=== PATIENT | female | born 1995 | race African-American/Black ===

== ENCOUNTER 2018-05-04 14:03 | Emergency (ER) | payer OTHER ==
[~2018-05-04] VITALS: Ht 154.9 cm; Wt 58.5 kg
[~2018-05-04 14:03] MED LIST: AMOXICILLIN500 MG PO; BACTRIM DS 8001 TAB PO; LO LOESTRIN FE1 TAB PO; PRENATAL ONE D1 EACH PO
[2018-05-04 14:12] VITALS: BP 103/72
--- NOTE | 2018-05-04 14:53 | ED GI/GU/ABDOMINAL COMPLAINT ---
History of Present Illness General Chief Complaint: Female Urogenital Problems Stated Complaint: ABD/FEMALE PAIN S/P MISCARRIAGE Source: patient Exam Limitations: no limitations Vital Signs & Intake/Output Vital Signs & Intake/Output Vital Signs Date Time Temp Pulse Resp B/P B/P Pulse O2 O2 Flow FiO2 Mean Ox Delivery Rate 05/04 1412 98.3 99 20 103/72 98 Room Air ED Intake and Output 05/05 0000 05/04 1200 Intake Total Output Total Balance Patient 129 lb Weight Weight Reported by Patient Measurement Method Allergies Coded Allergies: NO KNOWN ALLERGIES (07/24/14) Reconcile Medications NORETHINDRONE-E.ESTRADIOL-IRON (Lo Loestrin Fe 1-10 Tablet) 1MG-10(24) TABLET 1 TAB PO DAILY MENSTRUAL REGULARITY (Reported) Vit No.129/Iron/FA ( One Daily Tablet) 27 MG IRON-800 MCG TABLET 1 TAB PO DAILY Triage Note: PT TO ED C/O LOWER ABD PAIN CRAMPING AND VAGINAL SPOTTING. PT IS S/P MISCARRIAGE LAST WEEK AT 7 WEEKS. C/O CONTINUED ABD CRAMPING. Triage Nurses Notes Reviewed? yes ? Y Is pt currently ? No Onset: Abrupt Timing: no prior history HPI: 23-year-old female comes into the emergency room with vaginal bleeding and cramping. Patient reports that she had a miscarriage about a week ago. 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 She reports that she's been having some persistent cramping and some intermittent bleeding and she came in for further evaluation. Patient was seen in triage as a screening process. She eloped from the waiting room for being officially evaluated in the room. (Aaron Kramer) Past History Travel History Traveled to [place] past 21 day No Medical History Any Pertinent Medical History? see below for history Neurological: NONE EENT: NONE Cardiovascular: NONE Respiratory: asthma Gastrointestinal: NONE Hepatic: NONE Renal: NONE Musculoskeletal: NONE Psychiatric: NONE Endocrine: NONE Blood Disorders: NONE Surgical History Surgical History: non-contributory Psychosocial History What is your primary language French Tobacco Use: Never used ETOH Use: denies use Illicit Drug Use: denies illicit drug use Family History Hx Contributory? No (Aaron Kramer) Review of Systems Review of Systems Constitutional: Reports: no symptoms. EENTM: Reports: no symptoms. Respiratory: Reports: no symptoms. Cardiovascular: Reports: no symptoms. GI: Reports: no symptoms. Genitourinary: Reports: see HPI. Musculoskeletal: Reports: no symptoms. Skin: Reports: no symptoms. Neurological/Psychological: Reports: no symptoms. Hematologic/Endocrine: Reports: see HPI. Immunologic/Allergic: Reports: no symptoms. All Other Systems: Reviewed and Negative (Aaron Kramer) Physical Exam Physical Exam General Appearance: well developed/nourished, alert, awake Head: atraumatic Eyes: Bilateral: normal appearance. Ears, Nose, Throat, Mouth: hearing grossly normal, moist mucous membrane Neck: normal inspection Respiratory: no respiratory distress Gastrointestinal: not examined Back: normal inspection Extremities: normal range of motion Neurologic/Psych: awake, alert Skin: intact Core Measures ACS in differential dx? No Sepsis Present: No Sepsis Focused Exam Completed? No (Aaron Kramer) Progress Differential Diagnosis: spontaneous miscarriage, threatened miscarriage, Plan of Care: Orders Procedure Date/time Status URINALYSIS 05/04 141 Complete Laboratory Tests 05/04/18 1426: Urine Color YEL, Urine Clarity HAZY H, Urine pH 6.5, Ur Specific Marshall 1.025, Urine Protein NEG, Urine Ketones NEG, Urine Nitrite NEG, Urine Bilirubin NEG, Urine Urobilinogen 0.2, Ur Leukocyte Esterase NEG, Ur Microscopic SEDIMENT EXAMINED, Urine RBC 3-5, Urine WBC RARE, Ur Epithelial Cells MOD H, Urine Bacteria MOD H, Urine Hemoglobin LARGE H, Urine Glucose NEG 05/04/18 1414: Sodium Cancelled, Potassium Cancelled, Chloride Cancelled, Carbon Dioxide Cancelled, Anion Gap Cancelled, BUN Cancelled, Creatinine Cancelled, BUN/ Creatinine Ratio Cancelled, Glucose Cancelled, Calcium Cancelled, Total Bilirubin Cancelled, AST Cancelled, ALT Cancelled, Alkaline Phosphatase Cancelled, Total Protein Cancelled, Albumin Cancelled, Globulin Cancelled, Albumin/Globulin Ratio Cancelled, Beta HCG, Quant Cancelled, CBC w Diff Cancelled, WBC Cancelled, RBC Cancelled, Hgb Cancelled, Hct Cancelled, MCV Cancelled, MCH Cancelled, MCHC Cancelled, RDW Cancelled, Plt Count Cancelled, MPV Cancelled Initial ED EKG: none Comments: 05/04/2018 3:42:35 PM Patient was seen in triage part of the PA in triage process. Most of the physical exam was inspection alone. She was sent back out to the waiting room and blood work was ordered and she was going to be brought back to a room for full physical exam and further evaluation. The patient just left the waiting room without morning. She apparently said that she had some type of family emergency and left. I was not made aware until after the patient was gone. Blood work had not been sent at that time. (Aaron Kramer) Departure Departure Disposition: LEFT AGAINST MEDICAL ADVICE Condition: Stable Clinical Impression Primary Impression: Abdominal pain Referrals: Patient Has No Primary Care Dr (PCP/Family) Additional Instructions: Patient eloped from the emergency room. She has not seen in an official room. Results were not able to be discussed with her. Blood work had not been done. Departure Forms: Customer Survey General Discharge Information (Aaron Kramer) PA/COVER MARKER Co-Sign Statement Statement: ED Attending supervision documentation- I saw and evaluated the patient. I have also reviewed all the pertinent lab results and diagnostic results. I agree with the findings and the plan of care as documented in the PA's/COVER MARKER's documentation. x I have reviewed the ED Record and agree with the PA's/COVER MARKER's documentation. [] Additions or exceptions (if any) to the PAs/COVER MARKER's note and plan are summarized below: [] (Mehdi GREEN,[place])
[2018-05-05] MEDS ORDERED: IBUPROFEN800 M1 PO (16:24)
== END 2018-05-04 14:54 | disposition left against medical advice (07) ==
LOC: ERH 14:03
DX: R10.30 Lower abdominal pain, unspecified (principal); O03.6 Delayed or excessive hemorrhage following complete or unspecified spontaneous abortion
CPT/HCPCS: 81001; 99281